=== PATIENT | female | born 1970 | race Caucasian/White ===

== ENCOUNTER 2017-09-17 11:48 | Emergency (ER) | payer OTHER ==
--- NOTE | 2017-09-17 12:04 | EDPHY ---
H & P Stated Complaint: CP, HTN Time Seen by Provider: 09/17/17 12:03 HPI/ROS: HPI: This is a 47-year-old female who presents with Chief Complaint: Chest pain, hypertension Location: Left anterior chest Quality: Pressure-like pain Duration: Starting around 10:30 p.m. Last night Signs and Symptoms: no shortness of breath at rest, no shortness of breath on exertion, no cough, +chest pain, + palpitations, no lower extremity edema, no wheezing, no orthopnea, no paroxysmal nocturnal dyspnea, no fever, no injury/ trauma, no hemoptysis, no carpal pedal spasms Timing: Acute, constant Severity: Moderate to severe Context: Patient reports that in the past she had a history of hypertension and took lisinopril but has been off of it for some time. Presents with lying in bed last night and around 10:30 p.m. Her heart began to race and"come out of her chest." This was accompanied by left anterior chest pressure, constant, that radiated up into her left shoulder and down into her left arm. She reports that the chest discomfort has persisted throughout today. 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 Father history of DC and sudden . She took a baby aspirin last night. Patient admits to being under considerable stress lately. No prior history of cardiac disease. Risk factors include hypertension, positive family history. 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 Nares patent; no rhinorrhea; no nasal mucosal edema. Tympanic membranes clear. Oropharynx clear, no exudate and moist pink mucosa. Airway patent. No lymphadenopathy. No meningismus. Cardiovascular: Normal S1/S2, regular rate, regular rhythm, without murmur rub or gallop. PULMONARY/CHEST: Symmetrical and nontender. Clear to auscultation bilaterally. Good air movement. No accessory muscle usage. ABDOMEN: Soft, nondistended, nontender, no rebound, no guarding, no peritoneal signs, no masses or organomegaly. No CVAT. EXTREMITIES: 2/2 pulses, strength 5/5, no deformities, no clubbing, no cyanosis or edema. NEUROLOGICAL: no focal neuro deficits. GCS 15. SKIN: Warm and dry, no erythema. no rash. Good capillary refill. Source: Patient Exam Limitations: No limitations - Personal History LMP (Females 10-55): Hysterectomy Current Tetanus/Diphtheria Vaccine: Yes Current Tetanus Diphtheria and Acellular Pertussis (TDAP): Yes - Medical/Surgical History Hx Asthma: No Hx Chronic Respiratory Disease: No Hx Diabetes: No Hx Cardiac Disease: No Hx Renal Disease: No Hx Cirrhosis: No Hx Alcoholism: No Hx HIV/AIDS: No Hx Splenectomy or Spleen Trauma: No Other PMH: HTN, hysterectomy, appy, - Social History Smoking Status: Never smoked Constitutional: Initial Vital Signs Temperature (C) 37.1 C 09/17/17 11:55 Heart Rate 87 09/17/17 11:55 Respiratory Rate 16 09/17/17 11:55 Blood Pressure 169/105 H 09/17/17 11:55 O2 Sat (%) 100 09/17/17 11:55 O2 Delivery Mode Room Air Allergies/Adverse Reactions: morphine Allergy (Verified 09/17/17 11:55) Home Medications: Medication Instructions Recorded LORazepam [Ativan (*)] 0.5 mg PO Q6 PRN #12 tab 09/17/17 Lisinopril 20 mg PO DAILY #30 tablet 09/17/17 Medical Decision Making - Diagnostics EKG Interpretation: 12 lead EKG: Indication: Chest pain Rhythm: Normal sinus rhythm, rate 80 beats per minute [place]: Normal Intervals: Normal QRS: Normal ST segments: Normal INTERPRETATION: No acute ischemic changes/arrhythmias The 12 lead EKG was interpreted by myself and with attending. Imaging Results: Imaging Impressions Chest X-Ray 09/17/17 12:08 Impression: Normal chest. ED Course/Re-evaluation: EKG, chest x-ray, labs, IV fluids, oral medications ordered Given aspirin and IV Ativan 0.5 mg upon arrival. Heart Score=3 (low score) 1300: Reviewed labs. No signs of leukocytosis/anemia/JAYJAY/elevated LFTs/ electrolyte imbalance/thyroid disease/CHF/VTE. Repeat blood pressure greatly improved. Chest x-ray my read shows no signs of opacity, effusion, pneumothorax. Discussed case with attending and 2nd troponin not needed as chest pain started last night. Attending feels comfortable that the patient can be treated outpatient with Cardiology follow-up for risk factor modification and nuclear stress test. Patient will be prescribed lisinopril and small dose of Ativan. This patient was seen under the supervision of my secondary supervising physician. I evaluated care for this patient independently. Discussed this patient with Dr. Escobar who did not see the patient. Differential Diagnosis: Chest pain including but not limited to myocardial ischemia, pulmonary embolus, chest wall pain, pleural inflammation and pulmonary infectious causes. - Data Points Laboratory Results: Laboratory Results 09/17/17 12:06 09/17/17 12:06 09/17/17 09/17/17 09/17/17 12:06 12:06 12:06 WBC 6.91 10^3/uL 10^3/uL (3.80-9.50) RBC 4.26 10^6/uL 10^6/uL (4.18-5.33) Hgb 13.2 g/dL g/dL (12.6-16.3) Hct 39.3 % % (38.0-47.0) MCV 92.3 fL fL (81.5-99.8) MCH 31.0 pg pg (27.9-34.1) MCHC 33.6 g/dL g/dL (32.4-36.7) RDW 12.9 % % (11.5-15.2) Plt Count 306 10^3/uL 10^3/uL (150-400) MPV 10.3 fL fL (8.7-11.7) Neut % (Auto) 60.8 % % (39.3-74.2) Lymph % (Auto) 30.8 % % (15.0-45.0) Isabella % (Auto) 6.9 % % (4.5-13.0) Eos % (Auto) 1.0 % % (0.6-7.6) Baso % (Auto) 0.4 % % (0.3-1.7) Nucleat RBC Rel Count 0.0 % % (0.0-0.2) Absolute Neuts (auto) 4.19 10^3/uL 10^3/uL (1.70-6.50) Absolute Lymphs (auto) 2.13 10^3/uL 10^3/uL (1.00-3.00) Absolute Monos (auto) 0.48 10^3/uL 10^3/uL (0.30-0.80) Absolute Eos (auto) 0.07 10^3/uL 10^3/uL (0.03-0.40) Absolute Basos (auto) 0.03 10^3/uL 10^3/uL (0.02-0.10) Absolute Nucleated RBC 0.00 10^3/uL 10^3/uL (0-0.01) Immature Gran % 0.1 % % (0.0-1.1) Immature Gran # 0.01 10^3/uL 10^3/uL (0.00-0.10) D-Dimer < 0.27 ug/mLFEU ug/mLFEU (0.00-0.50) Sodium 142 mEq/L mEq/L (135-145) Potassium 3.7 mEq/L mEq/L (3.3-5.0) Chloride 105 mEq/L mEq/L (97-110) Carbon Dioxide 23 mEq/l mEq/l (22-31) Anion Gap 14 mEq/L mEq/L (8-16) BUN 9 mg/dL mg/dL (7-23) Creatinine 0.6 mg/dL mg/dL (0.6-1.0) Estimated GFR > 60 Glucose 96 mg/dL mg/dL (70-100) Calcium 8.9 mg/dL mg/dL (8.5-10.4) Troponin I < 0.012 ng/mL ng/mL (0.000-0.034) NT-Pro-B Natriuret Pep 206 pg/mL H pg/mL (0-125) TSH 1.720 uIU/mL uIU/mL (0.465-4.680) Medications Given: Discontinued Medications Aspirin (Aspirin) 324 mg PO EDNOW ONE Stop: 09/17/17 12:09 Last Admin: 09/17/17 12:15 Dose: 324 mg Sodium Chloride (Ns) 500 mls @ 1,000 mls/hr IV EDNOW ONE PRN Reason: Protocol Stop: 09/17/17 12:37 Last Admin: 09/17/17 12:15 Dose: 500 mls Lisinopril (Zestril) 40 mg PO EDNOW ONE Stop: 09/17/17 12:40 Last Admin: 09/17/17 12:43 Dose: 40 mg Lorazepam (Ativan Injection) 0.5 mg IVP EDNOW ONE Stop: 09/17/17 12:09 Last Admin: 09/17/17 12:17 Dose: 0.5 mg Departure - Departure Disposition: Home, Routine, Self-Care Clinical Impression: Essential hypertension, Atypical chest pain Condition: Good Instructions: Chest Pain (ED), Heart Healthy Diet (ED), Hypertension in the Older Adult (ED) Additional Instructions: Please take Lisinopril daily for hypertension. Please take Ativan every 6 hr as needed for severe anxiety, panic attack. Call Cardiology today or tomorrow for follow-up appointment in the next 2-3 days. Return to the ER immediately if you experience new, continued or worsened chest pain, chest pain that radiates, chest pain accompanied by exertion or associated with shortness of breath, sweating, nausea, dizziness, back pain, or any other symptoms that concern you. Follow-Up: Please follow-up as noted above. Follow-up sooner if your condition worsens or if you develop any new problems. Call as soon as possible for an appointment. Be clear when you call for an appointment that this is an Emergency Department follow-up. Contact the Emergency Department if you have trouble arranging follow-up care. Our referrals are not based on your insurance network. When time allows, contact your insurance carrier to verify the referral physician is in your plan. If not, get a referral for an in-network technician. Referrals: PAULINE TODD [Other] - As per Instructions Shahbaz Rosario MD [Medical Doctor] - 2-3 days, call for appt. Prescriptions: Lisinopril 20 mg PO DAILY #30 tablet LORazepam [Ativan (*)] 0.5 mg PO Q6 PRN #12 tab PRN Reason: Anxiety
[2017-09-17] MEDS ORDERED: NS 500 ML IV ONE (12:08)
[2017-09-17] MEDS ORDERED: ASPIRIN 81 MG CHEWABLE TAB PO ONE (12:08)
[2017-09-17] MEDS ORDERED: LORazepam 2 MG/ML INJ IVP ONE (12:08)
--- NOTE | 2017-09-17 12:08 | CPEKG ---
Heart Rate: 80 RR Interval: 750 P-R Interval: 132 QRSD Interval: 90 QT Interval: 380 QTC Interval: 439 P [place]: 53 QRS [place]: 46 T Wave [place]: 44 EKG Severity - NORMAL ECG - EKG Impression: SINUS RHYTHM Electronically Signed By: Oscar Escobar 17-Sep-2017 14:03:10
[2017-09-17 12:15] LABS: PLATELET COUNT 306 10^3/uL (150-400)
[2017-09-17] MEDS ORDERED: LISINOPRIL 20 MG TAB PO ONE (12:39)
[2017-09-17 13:18] VITALS: BP 137/87
== END 2017-09-17 13:31 | disposition home or self-care (01) ==
DX: R07.89 Other chest pain (principal); I10 Essential (primary) hypertension; E86.9 Volume depletion, unspecified
CPT/HCPCS: 96374; J2060